=== PATIENT | male | born 1985 | race Caucasian/White ===

== ENCOUNTER 2016-11-19 17:27 | Emergency (ER) | payer BC ==
--- NOTE | ~2016-11-19 | CT4 ---
[facility] A Service of [facility] RADIOLOGY TEXT RESULTS PATIENT: DANICA LEI LOCATION: SED : 81 UNIT #: [id number] AGE: [address]: Devyn Alfredo MD SEX: M ORDER DR: [id number] [place] [id number] E MR#: [id number] Acc #: [id number] NAME: DANICA LEI : 1985 SEX: M STUDY DATE/TIME: 11/19/2016 18:29 UNIT: SED ROOM: STUDY DESCRIPTION: CT Abd and Pelv Wo Cont Attending Physician: Devyn Alfredo M.D. Ordering Physician: Devyn Alfredo M.D. MEDICAL IMAGING REPORT This report is preliminary unless electronic signature is present. EXAM CT abdomen and pelvis without contrast HISTORY Back pain increasing urination, nausea vomiting for [address] exam was performed with one or more of the following radiation dose reduction techniques: automatic control, adjustment of mA and/or kV according to patient size, and iterative reconstruction. FINDINGS Axial images performed through the abdomen pelvis without contrast. Multiplanar reconstructions. ABDOMEN: Lung bases normal. Liver gallbladder unremarkable. Mild splenomegaly. Pancreas kidneys and adrenal glands unremarkable except for a subtle nonobstructing left renal stone. Visualized GI tract to include the appendix is normal. PELVIS: Bladder and prostate appear normal. Osseous structures soft tissues unremarkable. IMPRESSION 1. No definite acute intraabdominal or intrapelvic pathology. 2. Small nonobstructing left renal stone. 3. Mild splenomegaly. Dictated by... Diane Rajan M.D. THIS IS AN ELECTRONICALLY VERIFIED REPORT [facility] A Service of [facility] RADIOLOGY TEXT RESULTS PATIENT: DANICA LEI LOCATION: SED : 83 UNIT #: [id number] AGE: [address]: Devyn Alfredo MD SEX: M ORDER DR: Diane Rajan M.D. at 11/20/2016 1:03 PM JMS/rnr TD: 11/20/2016 03:14 JOB #: [id number] MEDICAL IMAGING REPORT Page 1 of 1
--- NOTE | ~2016-11-19 | CT71 ---
[facility]. [facility] A Service [facility] RADIOLOGY TEXT RESULTS PATIENT: DANICA LEI LOCATION: SED : 83 UNIT #: [id number] AGE: [address]: Devyn Alfredo MD SEX: M ORDER DR: [id number] [place] [id number] E MR#: [id number] Acc #: [id number] NAME: DANICA LEI : 1985 SEX: M STUDY DATE/TIME: 11/19/2016 18:26 UNIT: SED ROOM: STUDY DESCRIPTION: CT Head Wo Contrast Attending Physician: Devyn Alfredo M.D. Ordering Physician: Devyn Alfredo M.D. MEDICAL IMAGING REPORT This report is preliminary unless electronic signature is present. EXAM Noncontrast head CT. HISTORY Blurred vision, back pain nausea and vomiting x2 weeks. TECHNIQUE This CT exam was performed with one or more of the following radiation dose reduction techniques: automatic control, adjustment of mA and/or kV according to patient size, and iterative reconstruction. FINDINGS Axial noncontrast images were obtained from the skull base to the vertex. Ventricular size and configuration are normal. There is no evidence of acute infarct or hemorrhage. There are no extraaxial fluid collections. No mass lesion or mass effect is seen. There are no skull fractures. IMPRESSION Normal noncontrast head CT. Dictated by... Diane Rajan M.D. THIS IS AN ELECTRONICALLY VERIFIED REPORT Diane Rajan M.D. at 11/20/2016 1:03 PM MARLON/jollyr TD: 11/20/2016 02:22 JOB #: [id number] MEDICAL IMAGING REPORT [facility] A Service [facility] RADIOLOGY TEXT RESULTS PATIENT: DANICA LEI LOCATION: SED : 83 UNIT #: [id number] AGE: [address]: Devyn Alfredo MD SEX: M ORDER DR: Page 1 of 1
[2016-11-19] MEDS ORDERED: SUBOXONE 4 MG-1 EACH SL (17:37)
[2016-11-19 18:06] LABS: URINE SOURCE CLEAN CATCH
[2016-11-19 18:10] LABS: URINE APPEARANCE CLEAR; URINE BILIRUBIN NEG (NEG); URINE BLOOD NEG (NEG); URINE COLOR YELLOW; URINE GLUCOSE 300 MG/DL (NORM); URINE KETONE 2+ (NEG); URINE LEUKOCYTE ESTERASE NEG (NEG); URINE NITRATE NEG (NEG); URINE PH 5.5 (5-8); URINE PROTEIN NEG (NEG); URINE UROBILINOGEN 0.2 MG/DL (NORM)
[2016-11-19 18:11] LABS: MICRO INDICATED? NO
[2016-11-19 18:22] LABS: AMPHETAMINE NEG (NEG); BARBITURATES NEG (NEG); BENZODIAZEPINES NEG (NEG); COCAINE NEG (NEG); MARIJUANA POS (NEG); OPIATES NEG (NEG); TRICYCLIC ANTIDEPRESSANTS NEG (NEG); U METHADONE NEG (NEG)
[2016-11-19 18:23] LABS: EOSINOPHIL% 0.9 % (0.0-7.0); HEMOGLOBIN 15.1 gm/dL (13.0-16.0); LYMPHOCYTE# 0.8 X10e3 (1.0-3.5); LYMPHOCYTE% 15.4 % (17.0-45.0); MEAN CELL VOLUME 82.8 FL (83-96); MEAN CORPUSCULAR HEMOGLOBIN 29.1 PG (28-34); MEAN CORPUSCULAR HGB CONC 35.1 g/dL (30-36); MONOCYTE# 0.3 X10e3 (0-1.0); MONOCYTE% 5.5 % (3.0-12.0); NEUTROPHIL# 4.1 X10e3 (1.5-7.1); NEUTROPHIL% 78.2 % (40-75); PLATELET COUNT 209 X10e3 (140-420); RED CELL DISTRIBUTION WIDTH 12.7 % (11.0-15.5); WHITE BLOOD COUNT 5.2 X10e3 (4.0-10.5)
[2016-11-19 18:24] LABS: DIFF IND NO
[2016-11-19 18:41] LABS: CALCIUM SERUM 9.3 mg/dL (8.4-10.2); GLOM FILT RATE Estimated 98.5 mL/min (>60); POTASSIUM 4.4 mmol/L (3.5-5.1); PROTEIN TOTAL SERUM 8.4 g/dL (6.0-8.3)
== END 2016-11-20 00:53 ==
LOC: SED 17:27
PROVIDERS: Emergency Medicine
DX: E10.319 Type 1 diabetes mellitus with unspecified diabetic retinopathy without macular edema (principal); Z79.899 Other long term (current) drug therapy
CPT/HCPCS: 36415; 70450; 74176; 80053; 80307; 81003; 82010; 82550; 82947; 85025; 96361; 96374; 96375; 99285; J1885; J2405